=== PATIENT | male | born 1990 | race American Indian/Alaskan Native ===

== ENCOUNTER 2022-06-14 16:13 | Inpatient (IN) | payer SELFPAY ==
[2022-06-14] MEDS ORDERED: NALOXONE 2 MG/2 ML INJ IV ONE (17:52)
--- NOTE | 2022-06-14 18:31 | Emergency Department Report ---
ED General Adult HPI - General Chief complaint: Overdose Stated complaint: OD Time Seen by Provider: 06/14/22 16:29 Source: patient, EMS Mode of arrival: Stretcher Limitations: No Limitations - History of Present Illness Severity scale (0 -10): 0 - Related Data Allergies Allergy/AdvReac Type Severity Reaction Status Date / Time No Known Allergies Allergy Unverified 06/14/22 16:23 ED Review of Systems ROS: Stated complaint: OD Other details as noted in HPI Comment: All other systems reviewed and negative Constitutional: denies: chills, fever Eyes: denies: eye pain, eye discharge, vision change ENT: denies: ear pain, throat pain Respiratory: denies: cough, shortness of breath, wheezing Cardiovascular: denies: chest pain, palpitations Endocrine: no symptoms reported Gastrointestinal: denies: abdominal pain, nausea, diarrhea Genitourinary: denies: urgency, dysuria Musculoskeletal: denies: back pain, joint swelling, arthralgia Skin: denies: rash, lesions Neurological: denies: headache, weakness, paresthesias Psychiatric: denies: anxiety, depression Hematological/Lymphatic: denies: easy bleeding, easy bruising ED Physical Exam - General Limitations: No Limitations ED Course Vital Signs 06/14/22 16:13 Temperature 98.2 F Pulse Rate 95 H Respiratory 14 Rate Blood Pressure 116/79 [Left] O2 Sat by Pulse 98 Oximetry Critical care attestation.: If time is entered above; I have spent that time in minutes in the direct care of this critically ill patient, excluding procedure time. ED Disposition Condition: Stable
--- NOTE | 2022-06-14 18:33 | Emergency Department Report ---
ED General Adult HPI - General Chief complaint: Overdose Stated complaint: OD Time Seen by Provider: 06/14/22 16:29 Source: patient, EMS Mode of arrival: Stretcher Limitations: No Limitations - History of Present Illness Initial comments: Patient presents emergency department via EMS for unresponsiveness. The patient was found unresponsive by bystanders. EMS gave the patient 0.4 mg of Narcan and the patient was arousable. Patient states that he believes his cocaine was mixed with something. -: unknown Severity scale (0 -10): 0 Consistency: now resolved Improves with: none Worsens with: none Associated Symptoms: denies other symptoms Treatments Prior to Arrival: none - Related Data Allergies Allergy/AdvReac Type Severity Reaction Status Date / Time No Known Allergies Allergy Unverified 06/14/22 16:23 ED Review of Systems ROS: Stated complaint: OD Other details as noted in HPI Constitutional: denies: chills, fever Eyes: denies: eye pain, eye discharge, vision change ENT: denies: ear pain, throat pain Respiratory: denies: cough, shortness of breath, wheezing Cardiovascular: denies: chest pain, palpitations Endocrine: no symptoms reported Gastrointestinal: denies: abdominal pain, nausea, diarrhea Genitourinary: denies: urgency, dysuria Musculoskeletal: denies: back pain, joint swelling, arthralgia Skin: denies: rash, lesions Neurological: denies: headache, weakness, paresthesias Psychiatric: denies: anxiety, depression Hematological/Lymphatic: denies: easy bleeding, easy bruising ED Physical Exam - General Limitations: No Limitations General appearance: in no apparent distress, other (Somnolent but easily arousable) - Head Head exam: Present: atraumatic, normocephalic - Eye Eye exam: Present: normal appearance - ENT ENT exam: Present: mucous membranes moist - Neck Neck exam: Present: normal inspection - Respiratory Respiratory exam: Present: normal lung sounds bilaterally. Absent: respiratory distress - Cardiovascular Cardiovascular Exam: Present: regular rate, normal rhythm. Absent: systolic murmur, diastolic murmur, rubs, gallop - GI/Abdominal GI/Abdominal exam: Present: soft, normal bowel sounds. Absent: distended, tenderness - Rectal Rectal exam: Present: deferred - Extremities Exam Extremities exam: Present: normal inspection - Back Exam Back exam: Present: normal inspection - Neurological Exam Neurological exam: Present: alert, oriented X3, CN II-XII intact, other (). Absent: motor sensory deficit - Psychiatric Psychiatric exam: Present: normal affect, normal mood - Skin Skin exam: Present: warm, dry, intact, normal color. Absent: rash ED Course Vital Signs 06/14/22 06/14/22 06/14/22 16:13 16:41 16:45 Temperature 98.2 F Pulse Rate 95 H 84 Respiratory 14 11 L Rate Blood Pressure Blood Pressure 116/79 [Left] O2 Sat by Pulse 98 96 95 Oximetry 06/14/22 06/14/22 06/14/22 17:01 17:15 17:31 Temperature Pulse Rate 88 84 86 Respiratory 15 8 L 9 L Rate Blood Pressure 98/58 98/58 Blood Pressure [Left] O2 Sat by Pulse 95 96 96 Oximetry 06/14/22 06/14/22 06/14/22 17:45 18:01 18:15 Temperature Pulse Rate 85 86 91 H Respiratory 12 10 L 12 Rate Blood Pressure 103/61 103/61 104/63 Blood Pressure [Left] O2 Sat by Pulse 96 95 98 Oximetry 06/14/22 06/14/22 06/14/22 18:31 18:45 19:00 Temperature Pulse Rate 81 84 85 Respiratory 14 13 14 Rate Blood Pressure 104/63 106/70 104/63 Blood Pressure [Left] O2 Sat by Pulse 100 97 99 Oximetry 06/14/22 06/14/22 06/14/22 19:15 19:31 19:45 Temperature Pulse Rate 82 82 82 Respiratory 11 L 12 11 L Rate Blood Pressure 101/63 101/63 110/63 Blood Pressure [Left] O2 Sat by Pulse 96 95 95 Oximetry 06/14/22 06/14/22 20:01 20:15 Temperature Pulse Rate 82 79 Respiratory 18 11 L Rate Blood Pressure 110/63 Blood Pressure [Left] O2 Sat by Pulse 97 95 Oximetry ED Medical Decision Making - Lab Data Result diagrams: 06/14/22 19:56 06/14/22 19:56 Lab Results 06/14/22 06/14/22 Range/Units 19:56 19:56 WBC 18.5 H (4.5-11.0) K/mm3 RBC 4.47 (3.65-5.03) M/mm3 Hgb 13.8 (11.8-15.2) gm/dl Hct 40.6 (35.5-45.6) % MCV 91 (84-94) fl MCH 31 (28-32) pg MCHC 34 (32-34) % RDW 12.4 L (13.2-15.2) % Plt Count 138 L (140-440) K/mm3 Lymph % (Auto) 4.9 L (13.4-35.0) % Knox % (Auto) 7.2 (0.0-7.3) % Eos % (Auto) 0.0 (0.0-4.3) % Baso % (Auto) 0.3 (0.0-1.8) % Lymph # (Auto) 0.9 L (1.2-5.4) K/mm3 Knox # (Auto) 1.3 H (0.0-0.8) K/mm3 Eos # (Auto) 0.0 (0.0-0.4) K/mm3 Baso # (Auto) 0.0 (0.0-0.1) K/mm3 Seg Neutrophils % 87.6 H (40.0-70.0) % Seg Neutrophils # 16.2 H (1.8-7.7) K/mm3 Sodium 138 (137-145) mmol/L Potassium 4.6 (3.6-5.0) mmol/L Chloride 102.9 (98-107) mmol/L Carbon Dioxide 23 (22-30) mmol/L Anion Gap 17 mmol/L BUN 18 (9-20) mg/dL Creatinine 1.4 H (0.8-1.3) mg/dL Estimated GFR > 60 ml/min BUN/Creatinine Ratio 13 % Glucose 108 H (75-100) mg/dL Calcium 8.4 (8.4-10.2) mg/dL Total Bilirubin 1.10 (0.1-1.2) mg/dL AST 219 H (5-40) units/L ALT 113 H (7-56) units/L Alkaline Phosphatase 71 (35-129) units/L Total Protein 5.3 L (6.3-8.2) g/dL Albumin 3.5 L (3.9-5) g/dL Albumin/Globulin Ratio 1.9 % - Radiology Data Radiology results: report reviewed - Medical Decision Making Spoke to the neuro fuel dock attendant at [place], Dr. Waite, and the patient CT was discussed in detail So that is less likely that the patient has an anoxic injury due to his stability to correspond upon awakening Discussed doing a infectious work-up and to admit the patient to our facility for MRI with and without contrast The above-mentioned neurochecks was felt the patient did not need to be acutely transferred out to their facility Spoke to Dr. Real but the patient and the plan of care Patient will be admitted to the hospitalist with MRI planned for the morning Patient will also get lumbar puncture via IR in the a.m. Reevaluation of the patient at 10:05 PM he is alert oriented x3 with a GCS of 14/15 Critical care attestation.: If time is entered above; I have spent that time in minutes in the direct care of this critically ill patient, excluding procedure time. ED Disposition Clinical Impression: AMS (altered mental status) Disposition: ADMITTED INPATIENT Is pt being admited?: Yes Does the pt Need Aspirin: No Condition: Fair
--- NOTE | 2022-06-14 19:42 | Cat Scan Report ---
CT head/brain wo con INDICATION / CLINICAL INFORMATION: 31 years Male; unresponsive. TECHNIQUE: Routine CT head without contrast. All CT scans at this location are performed using CT dos e reduction for ALARA by means of automated exposure control. COMPARISON: None. FINDINGS: BRAIN / INTRACRANIAL CONTENTS: Decreased attenuation seen in the globus pallidus regions bilaterally. Findings are suggestive of anoxic episode. Please clinically correlate. Otherwise, no acute hemorrhage, mass effect, midline shift, hydrocephalus, or acute, large territori al infarct. No signs of significant atrophy or chronic infarct. No significant white matter abnormali ty seen. CRANIOCERVICAL JUNCTION: No significant abnormality. ORBITS: No significant abnormality of visualized orbits. SINUSES / MASTOIDS: Small air-fluid levels seen in both maxillary antra. Mild to moderate mucosal thi ckening seen in the ethmoids. ADDITIONAL FINDINGS: None. IMPRESSION: 1. Findings worrisome for anoxic episode, as described above. 2. Otherwise, no focal mass, hemorrhage, hydrocephalus, or acute, large infarct seen. 3. Sinus disease noted. Signer Name: Vinnie Sanchez MD, III Signed: 06/14/2022 7:38 PM Workstation Name: [id number]
[2022-06-14 20:41] LABS: Basophils % (Auto) 0.3 % (0.0-1.8); Hematocrit 40.6 % (35.5-45.6); Hemoglobin 13.8 gm/dl (11.8-15.2); Lymphocytes # (Auto) 0.9 K/mm3 (1.2-5.4); Lymphocytes % (Auto) 4.9 % (13.4-35.0); Mean Corpuscular HGB Conc 34 % (32-34); Mean Corpuscular Volume 91 fl (84-94); Monocytes # (Auto) 1.3 K/mm3 (0.0-0.8); Monocytes % (Auto) 7.2 % (0.0-7.3); Platelet Count 138 K/mm3 (140-440); Red Blood Count 4.47 M/mm3 (3.65-5.03); Red Cell Distribution Width 12.4 % (13.2-15.2)
[2022-06-14 20:57] LABS: Alanine Aminotransferase 113 units/L (7-56); Albumin 3.5 g/dL (3.9-5); BUN/Creatinine Ratio 13; Blood Urea Nitrogen 18 mg/dL (9-20); Calcium 8.4 mg/dL (8.4-10.2); Hemolysis Index 29
[2022-06-14] MEDS ORDERED: LIDOCAINE 2%/EPINEPHRINE 1:100,000 VIAL (20 ML) INFILTRATI ONE (21:47)
[2022-06-14] MEDS ORDERED: ONDANSETRON 4 MG/2 ML INJ IV PRN ×2 (22:18→22:47)
[2022-06-14] MEDS ORDERED: ACETAMINOPHEN 325 MG TAB PO PRN ×2 (22:18→22:47)
[2022-06-14] MEDS ORDERED: MORPHINE 2 MG/1 ML INJ IV PRN ×2 (22:18→22:47)
[2022-06-14] MEDS ORDERED: IBUPROFEN 600 MG TAB PO PRN (22:18)
[2022-06-14] MEDS ORDERED: MORPHINE 4 MG/1 ML INJ IV PRN (22:47)
[2022-06-14] MEDS ORDERED: ALBUTEROL 2.5 MG/3 ML NEBU IH PRN (22:47)
--- NOTE | 2022-06-14 22:55 | History and Physical Report ---
History of Present Illness Date of examination: 06/14/22 Date of admission: 06/14/22 Chief complaint: Altered mental status Drug overdose History of present illness: 31 years old male with history of cocaine abuse was brought to the emergency department via EMS for unresponsiveness. The patient was found unresponsive by bystanders. EMS gave the patient 0.4 mg of Narcan and the patient was arousable. Patient states that he believes his cocaine was mixed with so mething. In the emergency room initial CT scan of the head shows decreased attenuation seen in the right globus pallidus regions bilaterally. Findings are suggestive of an anoxic episode. Subsequently ER physician Spoke to the neuro shredded filler cigar maker machine at [place], Dr. Waite, and the patient CT was discussed in detail So that is less likely that the patient has an anoxic injury due to his stability to correspond upon awakening Discussed doing a infectious work-up and to admit the patient to our facility for MRI with and without contrast The above-mentioned neurochecks was felt the patient did not need to be acutely transferred out to their facility Spoke to Dr. Rela but the patient and the plan of care Patient will be admitted to the hospitalist with MRI planned for the morning Patient will also get lumbar puncture via IR in the a.m. Reevaluation of the patient at 10:05 PM he is alert oriented x3 with a GCS of 14/15 Past History Past Medical History: other Past Surgical History: No surgical history (Cocaine abuse) Social history: other (Cocaine abuse) Family history: no significant family history Medications and Allergies Allergies Allergy/AdvReac Type Severity Reaction Status Date / Time No Known Allergies Allergy Verified 06/14/22 22:24 Active Meds: Active Medications Acetaminophen (Acetaminophen 325 Mg Tab) 650 mg PO Q4H PRN PRN Reason: Pain MILD(1-3)/Fever >100.5/MANN Ibuprofen (Ibuprofen 600 Mg Tab) 600 mg PO Q6H PRN PRN Reason: Pain, Mild (1-3) Morphine Sulfate (Morphine 2 Mg/1 Ml Inj) 2 mg IV Q4H PRN PRN Reason: Pain, Moderate (4-6) Ondansetron HCl (Ondansetron 4 Mg/2 Ml Inj) 4 mg IV Q8H PRN PRN Reason: Nausea And Vomiting Sodium Chloride (Sodium Chloride 0.9% 10 Ml Flush Syringe) 10 ml IV BID NEGRITA Sodium Chloride (Sodium Chloride 0.9% 10 Ml Flush Syringe) 10 ml IV PRN PRN PRN Reason: LINE FLUSH Review of Systems All systems: negative Constitutional: fatigue, malaise, lethargy Exam - Constitutional Vitals: Temp Pulse Resp BP Pulse Ox 98.2 F 79 11 L 110/63 95 06/14/22 16:13 06/14/22 20:15 06/14/22 20:15 06/14/22 20:01 06/14/22 20:15 General appearance: Present: no acute distress, well-nourished - EENT Eyes: Present: PERRL ENT: hearing intact, clear oral mucosa - Neck Neck: Present: supple, normal ROM - Respiratory Respiratory effort: normal Respiratory: bilateral: CTA - Cardiovascular Heart Sounds: Present: S1 & S2. Absent: rub, click - Extremities Extremities: pulses symmetrical, No edema Peripheral Pulses: within normal limits - Abdominal General gastrointestinal: Present: soft, non-tender, non-distended, normal bowel sounds Male genitourinary: Present: normal - Integumentary Integumentary: Present: clear, warm, dry - Musculoskeletal Musculoskeletal: gait normal, strength equal bilaterally - Psychiatric Psychiatric: appropriate mood/affect, intact judgment & insight - Neurologic Neurologic: CNII-XII intact, moves all extremities Results - Labs CBC & Chem 7: 06/14/22 19:56 06/14/22 19:56 Labs: Laboratory Last Values WBC 18.5 K/mm3 (4.5-11.0) H 06/14/22 19:56 RBC 4.47 M/mm3 (3.65-5.03) 06/14/22 19:56 Hgb 13.8 gm/dl (11.8-15.2) 06/14/22 19:56 Hct 40.6 % (35.5-45.6) 06/14/22 19:56 MCV 91 fl (84-94) 06/14/22 19:56 MCH 31 pg (28-32) 06/14/22 19:56 MCHC 34 % (32-34) 06/14/22 19:56 RDW 12.4 % (13.2-15.2) L 06/14/22 19:56 Plt Count 138 K/mm3 (140-440) L 06/14/22 19:56 Lymph % (Auto) 4.9 % (13.4-35.0) L 06/14/22 19:56 Perry % (Auto) 7.2 % (0.0-7.3) 06/14/22 19:56 Eos % (Auto) 0.0 % (0.0-4.3) 06/14/22 19:56 Baso % (Auto) 0.3 % (0.0-1.8) 06/14/22 19:56 Lymph # (Auto) 0.9 K/mm3 (1.2-5.4) L 06/14/22 19:56 Perry # (Auto) 1.3 K/mm3 (0.0-0.8) H 06/14/22 19:56 Eos # (Auto) 0.0 K/mm3 (0.0-0.4) 06/14/22 19:56 Baso # (Auto) 0.0 K/mm3 (0.0-0.1) 06/14/22 19:56 Seg Neutrophils % 87.6 % (40.0-70.0) H 06/14/22 19:56 Seg Neutrophils # 16.2 K/mm3 (1.8-7.7) H 06/14/22 19:56 Sodium 138 mmol/L (137-145) 06/14/22 19:56 Potassium 4.6 mmol/L (3.6-5.0) 06/14/22 19:56 Chloride 102.9 mmol/L (98-107) 06/14/22 19:56 Carbon Dioxide 23 mmol/L (22-30) 06/14/22 19:56 Anion Gap 17 mmol/L 06/14/22 19:56 BUN 18 mg/dL (9-20) 06/14/22 19:56 Creatinine 1.4 mg/dL (0.8-1.3) H 06/14/22 19:56 Estimated GFR > 60 ml/min 06/14/22 19:56 BUN/Creatinine Ratio 13 % 06/14/22 19:56 Glucose 108 mg/dL (75-100) H 06/14/22 19:56 Lactic Acid 1.40 mmol/L (0.7-2.0) 06/14/22 21:33 Calcium 8.4 mg/dL (8.4-10.2) 06/14/22 19:56 Total Bilirubin 1.10 mg/dL (0.1-1.2) 06/14/22 19:56 AST 219 units/L (5-40) H 06/14/22 19:56 ALT 113 units/L (7-56) H 06/14/22 19:56 Alkaline Phosphatase 71 units/L (35-129) 06/14/22 19:56 Total Protein 5.3 g/dL (6.3-8.2) L 06/14/22 19:56 Albumin 3.5 g/dL (3.9-5) L 06/14/22 19:56 Albumin/Globulin Ratio 1.9 % 06/14/22 19:56 - Imaging and Cardiology CT Scan - head: report reviewed Assessment and Plan VTE prophylaxis?: Mechanical Plan of care discussed with patient/family: Yes - Patient Problems (1) Acute metabolic encephalopathy Status: Acute Plan to address problem: Admit the patient to the medical telemetry. NPO. D5 half-normal saline at the rate of 100 cc/h. Oxygen via nasal penetrator per minute. We will do MRI of the brain and MRA of the brain and neck with and without contrast. Neurology and critical care evaluation. We also do LP in the morning as per ER physician. (2) Anoxic brain injury Status: Acute Plan to address problem: Oxygen via nasal penetrator per minute. We will do MRI of the brain and MRA of the brain and neck with and without contrast. Neurology and critical care evaluation. We also do LP in the morning as per ER physician. (3) Cocaine abuse Status: Acute Plan to address problem: Patient counseled regarding quit taking drugs and cocaine. (4) DVT prophylaxis Status: Acute Plan to address problem: SCD for DVT prophylaxis. Pepcid 20 mg IV twice a day for GI prophylaxis. Patient is a full code
[2022-06-14] MEDS ORDERED: D5W/0.45% NACL 1,000 ML IV SCH (23:00)
[2022-06-15] MEDS ORDERED: IPRATROPIUM/ALBUTEROL SULFATE 3 ML AMPUL.NEB IH SCH (02:00)
[2022-06-15] MEDS: FAMOTIDINE 20 MG/2 ML INJ IV SCH ×2 (12:50→22:53)
[2022-06-15] MEDS: ASPIRIN 325 MG TAB PO SCH (12:51)
--- NOTE | 2022-06-15 13:14 | Procedure Note ---
Date of procedure: 06/15/22 Pre-op diagnosis: altered mental status Post-op diagnosis: same Procedure: flouro guided lumbar puncture Findings: elevated CSF pressure 20 cm H20 Anesthesia: local Surgeon: RO HILL Estimated blood loss: none Pathology: list (4 csf tubes) Specimen disposition: to lab Condition: stable Disposition: floor
--- NOTE | 2022-06-15 13:19 | Fluoroscopy Report ---
LUMBAR PUNCTURE INDICATION : Altered mental status PROCEDURE: The risks (including but not limited to bleeding, infection, and spinal headache) and juliann efits were explained to the patient and informed consent was obtained. A time out procedure was perf ormed. The procedure site was prepped and draped in the usual sterile fashion and lidocaine was used for local anesthesia. Under fluoroscopic guidance, a 22-gauge spinal needle was advanced into the L3-4 interlaminar space. The opening pressure was 200 mm H2O which was calculated by adding the length of the needle (9 cm) to the height of the CSF column. 4 separate collection tubes were used to obtain 2 mL's of CSF each Jerome ples were sent to the lab per the ordering physician specifications for further evaluation. The patient tolerated the procedure well with no complications. IMPRESSION: Successful lumbar puncture as outlined above. Opening pressure was 200 mm H20. Fluoroscopic time: 0.8 Number of fluoroscopic images: 1 Signer Name: Toni Kwon Jr, MD Signed: 06/15/2022 1:15 PM Workstation Name: [id number]
--- NOTE | 2022-06-15 13:32 | Magnetic Resonance Report ---
MRI BRAIN WITHOUT CONTRAST INDICATION / CLINICAL INFORMATION: stroke. TECHNIQUE: Multisequence, multiplanar images were obtained. COMPARISON: None available. FINDINGS: CEREBRAL and CEREBELLAR HEMISPHERES: Symmetric diffusion restriction is identified in both basal gang juliet involving the globus pallidi bilaterally. No other areas of diffusion restriction are identified. There are punctate areas of petechial hemorrhage suggested on the gradient T2 images in both globus pallidi. No uncontained hemorrhage. There are scattered areas of T2 signal abnormalities in the periv entricular and subcortical white matter bilaterally consistent with chronic microangiopathy. The chemo ruben of the brain parenchyma demonstrates normal signal. No midline shift. No acute hemorrhage. No extra-axial fluid collection. VENTRICLES: Normal in size and configuration for age. VISUALIZED ORBITS: No significant abnormality. VISUALIZED PARANASAL SINUSES: Mild to moderate mucosal thickening is present throughout all paranasal sinuses. The mastoid air cells are clear. ADDITIONAL FINDINGS: None. IMPRESSION: Diffusion restriction is identified in the globus pallidi bilaterally. This could be secondary to hyp oxic-ischemic encephalopathy, toxic encephalopathy or metabolic encephalopathy. Cocaine encephalopath y could be considered. MRA HEAD INDICATION / CLINICAL INFORMATION: 31 years Male; stroke. TECHNIQUE: 3-D time of flight. NASCET type criteria used to evaluate stenoses. COMPARISON: None available. FINDINGS: INTERNAL CAROTID ARTERIES: No significant narrowing appreciated. VERTEBROBASILAR SYSTEM: No significant narrowing appreciated. The left vertebral artery is dominant. DISTAL BRANCHES: Distal branches of the anterior, middle, and posterior cerebral arteries are fairly symmetric in appearance and number. ANEURYSM: None identified. IMPRESSION: No significant abnormality on this MRA of the brain. Signer Name: Toni Kwon Jr, MD Signed: 06/15/2022 1:28 PM Workstation Name: [id number]
--- NOTE | 2022-06-15 13:50 | Progress Note ---
Assessment and Plan Assessment and plan: #Acute metabolic encephalopathyresolved #Mild anoxic brain injury CT head noncontrast (06/14/2022) revealing "findings worrisome for anoxic episode; decreased attenuation seen in the globus pallidus regions bilaterally. Findings are suggestive of an anoxic episode. Please clinically correlate. Otherwise, no focal mass, hemorrhage, hydrocephalus, or acute large infarct seen." MRI brain without contrast (06/15/2022) revealing "diffusion restriction is identified in the globus palate bilaterally; this could be secondary to hypoxic ischemic encephalopathy, toxic encephalopathy, or metabolic encephalopathy. Cocaine encephalopathy could be considered. Lumbar puncture performed (06/15/2022): Glucose, total protein, cell count differential Ordering PT/OT to evaluate patient status post anoxic brain injury Pending UDS #Mild protein caloric malnutrition Albumin 3.5 Starting dietary supplementation #Tobacco dependence #Tobacco/Smoking cessation counseling - Counseled patient about the importance of smoking cessation and the possible sequelae as a result of continued tobacco consumption. The patient expresses understanding. -Time: +15 mins #Advanced care planning -Disease education conducted, care plan discussed, diagnoses discussed, prognosis discussed, and patient acknowledges understanding with care plan -Time: +30 min Disposition Plan: Continue medical management Total Time Spent with Patient (Minutes): 45 minutes History Interval history: No acute events overnight. Hospitalist Physical - Constitutional Vitals: Temp Pulse Resp BP Pulse Ox 98.3 F 66 20 110/57 95 06/15/22 05:21 06/15/22 05:21 06/15/22 05:21 06/15/22 05:21 06/15/22 05:21 General appearance: Present: no acute distress, well-nourished - EENT Eyes: Present: PERRL, EOM intact ENT: hearing intact, clear oral mucosa, dentition normal - Neck Neck: Present: supple, normal ROM - Respiratory Respiratory effort: normal Respiratory: bilateral: CTA - Cardiovascular Rhythm: regular Heart Sounds: Present: S1 & S2 - Extremities Extremities: no ischemia, pulses intact, pulses symmetrical, No edema, normal temperature, normal color Peripheral Pulses: within normal limits - Abdominal General gastrointestinal: soft, non-tender, non-distended, normal bowel sounds - Integumentary Integumentary: Present: clear, warm, dry - Psychiatric Psychiatric: appropriate mood/affect, cooperative - Neurologic Neurologic: CNII-XII intact, moves all extremities - Allied Health Allied health notes reviewed: nursing Results - Labs CBC & Chem 7: 06/14/22 19:56 06/14/22 19:56 Labs: Laboratory Last Values WBC 18.5 K/mm3 (4.5-11.0) H 06/14/22 19:56 RBC 4.47 M/mm3 (3.65-5.03) 06/14/22 19:56 Hgb 13.8 gm/dl (11.8-15.2) 06/14/22 19:56 Hct 40.6 % (35.5-45.6) 06/14/22 19:56 MCV 91 fl (84-94) 06/14/22 19:56 MCH 31 pg (28-32) 06/14/22 19:56 MCHC 34 % (32-34) 06/14/22 19:56 RDW 12.4 % (13.2-15.2) L 06/14/22 19:56 Plt Count 138 K/mm3 (140-440) L 06/14/22 19:56 Lymph % (Auto) 4.9 % (13.4-35.0) L 06/14/22 19:56 [place] % (Auto) 7.2 % (0.0-7.3) 06/14/22 19:56 Eos % (Auto) 0.0 % (0.0-4.3) 06/14/22 19:56 Baso % (Auto) 0.3 % (0.0-1.8) 06/14/22 19:56 Lymph # (Auto) 0.9 K/mm3 (1.2-5.4) L 06/14/22 19:56 [place] # (Auto) 1.3 K/mm3 (0.0-0.8) H 06/14/22 19:56 Eos # (Auto) 0.0 K/mm3 (0.0-0.4) 06/14/22 19:56 Baso # (Auto) 0.0 K/mm3 (0.0-0.1) 06/14/22 19:56 Seg Neutrophils % 87.6 % (40.0-70.0) H 06/14/22 19:56 Seg Neutrophils # 16.2 K/mm3 (1.8-7.7) H 06/14/22 19:56 Sodium 138 mmol/L (137-145) 06/14/22 19:56 Potassium 4.6 mmol/L (3.6-5.0) 06/14/22 19:56 Chloride 102.9 mmol/L (98-107) 06/14/22 19:56 Carbon Dioxide 23 mmol/L (22-30) 06/14/22 19:56 Anion Gap 17 mmol/L 06/14/22 19:56 BUN 18 mg/dL (9-20) 06/14/22 19:56 Creatinine 1.4 mg/dL (0.8-1.3) H 06/14/22 19:56 Estimated GFR > 60 ml/min 06/14/22 19:56 BUN/Creatinine Ratio 13 % 06/14/22 19:56 Glucose 108 mg/dL (75-100) H 06/14/22 19:56 Lactic Acid 1.40 mmol/L (0.7-2.0) 06/14/22 21:33 Calcium 8.4 mg/dL (8.4-10.2) 06/14/22 19:56 Total Bilirubin 1.10 mg/dL (0.1-1.2) 06/14/22 19:56 AST 219 units/L (5-40) H 06/14/22 19:56 ALT 113 units/L (7-56) H 06/14/22 19:56 Alkaline Phosphatase 71 units/L (35-129) 06/14/22 19:56 Total Protein 5.3 g/dL (6.3-8.2) L 06/14/22 19:56 Albumin 3.5 g/dL (3.9-5) L 06/14/22 19:56 Albumin/Globulin Ratio 1.9 % 06/14/22 19:56 Microbiology: Microbiology 06/14/22 21:33 Peripheral/Venous Blood Culture - Preliminary Culture in Progress 06/14/22 21:33 Peripheral/Venous Blood Culture - Preliminary Culture in Progress Active Medications - Current Medications Current Medications: Generic Name Dose Route Start Last Admin Trade Name Freq PRN Reason Stop Dose Admin Acetaminophen 650 mg 06/14/22 22:47 Acetaminophen 325 Mg Tab PO Q4H PRN Pain MILD(1-3)/Fever >100.5/MANN Albuterol 2.5 mg 09/08/22 22:47 Albuterol 2.5 Mg/3 Ml Nebu IH Q3HRT PRN Shortness Of Breath Aspirin 325 mg 06/15/22 10:00 06/15/22 12:51 Aspirin 325 Mg Tab PO 325 mg QDAY NEGRITA Administration Famotidine 20 mg 06/15/22 10:00 06/15/22 12:50 Famotidine 20 Mg/2 Ml Inj IV 20 mg BID NEGRITA Administration Ibuprofen 600 mg 06/14/22 22:18 Ibuprofen 600 Mg Tab PO Q6H PRN Pain, Mild (1-3) Morphine Sulfate 2 mg 06/14/22 22:47 Morphine 2 Mg/1 Ml Inj IV Q4H PRN Pain, Moderate (4-6) Morphine Sulfate 4 mg 06/14/22 22:47 Morphine 4 Mg/1 Ml Inj IV Q4H PRN Pain , Severe (7-10) Ondansetron HCl 4 mg 06/14/22 22:47 Ondansetron 4 Mg/2 Ml Inj IV Q8H PRN Nausea And Vomiting Sodium Chloride 10 ml 06/15/22 10:00 06/15/22 12:51 Sodium Chloride 0.9% 10 Ml Flush Syringe IV 10 ml BID NEGRITA Administration Sodium Chloride 10 ml 06/14/22 22:47 Sodium Chloride 0.9% 10 Ml Flush Syringe IV PRN PRN LINE FLUSH
[2022-06-15 16:19] LABS: Basophils % (Auto) 0.1 % (0.0-1.8); Eosinophils % (Auto) 0.1 % (0.0-4.3); Hematocrit 37.8 % (35.5-45.6); Hemoglobin 12.9 gm/dl (11.8-15.2); Lymphocytes # (Auto) 0.8 K/mm3 (1.2-5.4); Lymphocytes % (Auto) 7.3 % (13.4-35.0); Mean Corpuscular HGB Conc 34 % (32-34); Mean Corpuscular Volume 92 fl (84-94); Monocytes # (Auto) 0.8 K/mm3 (0.0-0.8); Monocytes % (Auto) 7.6 % (0.0-7.3); Platelet Count 131 K/mm3 (140-440); Red Blood Count 4.12 M/mm3 (3.65-5.03); Red Cell Distribution Width 12.4 % (13.2-15.2)
[2022-06-15 16:27] LABS: INR 0.95 (0.87-1.13)
[2022-06-15 16:33] LABS: Glucose,CSF 69 mg/dL
[2022-06-15 16:44] LABS: BUN/Creatinine Ratio 13; Blood Urea Nitrogen 14 mg/dL (9-20); Calcium 8.2 mg/dL (8.4-10.2); Chol/HDL Ratio 2.81 %; HDL Cholesterol 43 mg/dL (40-59); Hemolysis Index 10; LDL Cholesterol,Direct 63 mg/dL (50-130)
[2022-06-15 16:46] LABS: Total Cells Counted 3 /mm3
[2022-06-15 16:47] LABS: Appearance,CSF Clear; Red Blood Cell,CSF 0 /mm3 (0-0); White Blood Cell,CSF 0 /mm3 (1-10)
--- NOTE | 2022-06-15 17:15 | Consultation ---
History of Present Illness Consult date: 06/15/22 Reason for Consult: AMS Chief complaint: AMS History of present illness: 31 yo male with substance abuse, noted with acute encephalopathy / unresponsive and found by bystanders. He was given narcan and noted to be arousable. He thinks the cocaine was laced. Noted on admission nchct with bilateral globus pallidus hypodensities, which does not match his exam. Patient is not in the room during rounds but is at MRI. Past History Past Medical History: other (substance abuse) Past Surgical History: No surgical history (Cocaine abuse) Social history: other (Cocaine abuse) Family history: no significant family history Medications and Allergies Allergies Allergy/AdvReac Type Severity Reaction Status Date / Time No Known Allergies Allergy Verified 06/14/22 22:24 Home Medications Medication Instructions Recorded Confirmed Last Taken Type No Known Home Medications [No 06/15/22 06/15/22 Unknown History Reported Home Medications] Active Meds: Active Medications Acetaminophen (Acetaminophen 325 Mg Tab) 650 mg PO Q4H PRN PRN Reason: Pain MILD(1-3)/Fever >100.5/MANN Albuterol (Albuterol 2.5 Mg/3 Ml Nebu) 2.5 mg IH Q3HRT PRN PRN Reason: Shortness Of Breath Aspirin (Aspirin 325 Mg Tab) 325 mg PO QDAY [facility] Last Admin: 06/15/22 12:51 Dose: 325 mg Famotidine (Famotidine 20 Mg/2 Ml Inj) 20 mg IV BID [facility] Last Admin: 06/15/22 12:50 Dose: 20 mg Ibuprofen (Ibuprofen 600 Mg Tab) 600 mg PO Q6H PRN PRN Reason: Pain, Mild (1-3) Morphine Sulfate (Morphine 2 Mg/1 Ml Inj) 2 mg IV Q4H PRN PRN Reason: Pain, Moderate (4-6) Morphine Sulfate (Morphine 4 Mg/1 Ml Inj) 4 mg IV Q4H PRN PRN Reason: Pain , Severe (7-10) Ondansetron HCl (Ondansetron 4 Mg/2 Ml Inj) 4 mg IV Q8H PRN PRN Reason: Nausea And Vomiting Sodium Chloride (Sodium Chloride 0.9% 10 Ml Flush Syringe) 10 ml IV BID [facility] Last Admin: 06/15/22 12:51 Dose: 10 ml Sodium Chloride (Sodium Chloride 0.9% 10 Ml Flush Syringe) 10 ml IV PRN PRN PRN Reason: LINE FLUSH Physical Examination - Vital Signs Vital Signs: Vital Signs Temp Pulse Resp BP Pulse Ox 98.2 F 95 H 14 116/79 98 06/14/22 16:13 06/14/22 16:13 06/14/22 16:13 06/14/22 16:13 06/14/22 16:13 - Physical Exam Narrative exam: Patient is not in room during rounds but he is at MRI. Results - Laboratory Findings CBC and BMP: 06/15/22 15:54 06/15/22 15:54 Abnormal Lab Findings: Abnormal Labs 06/14/22 06/14/22 06/15/22 19:56 19:56 15:54 WBC 18.5 H RDW 12.4 L 12.4 L Plt Count 138 L 131 L Lymph % (Auto) 4.9 L 7.3 L [place] % (Auto) 7.6 H Lymph # (Auto) 0.9 L 0.8 L [place] # (Auto) 1.3 H Seg Neutrophils % 87.6 H 84.9 H Seg Neutrophils # 16.2 H 9.2 H Sodium Carbon Dioxide Creatinine 1.4 H Glucose 108 H Calcium AST 219 H ALT 113 H Total Protein 5.3 L Albumin 3.5 L 06/15/22 15:54 WBC RDW Plt Count Lymph % (Auto) [place] % (Auto) Lymph # (Auto) [place] # (Auto) Seg Neutrophils % Seg Neutrophils # Sodium 136 L Carbon Dioxide 31 H D Creatinine Glucose 131 H Calcium 8.2 L AST ALT Total Protein Albumin Assessment and Plan 31 yo male with substance abuse, noted with bilateral globus pallidus hypodensities. 1. Acute Toxic Encephalopathy - secondary to substance (cocaine+) abuse; bilateral globus pallidus hypodensities likely represent toxic/metabolic injury, seen sometimes in the setting of substance abuse. 2. Substance Abuse - outpatient detox/rehab program highly recommended; high risk of seizures / strokes / cardiac / metabolic / toxic events. Santo Bee MD Neurology
[2022-06-16 07:51] LABS: Basophils % (Auto) 0.2 % (0.0-1.8); Eosinophils % (Auto) 0.3 % (0.0-4.3); Hematocrit 38.2 % (35.5-45.6); Hemoglobin 12.5 gm/dl (11.8-15.2); Lymphocytes % (Auto) 11.7 % (13.4-35.0); Mean Corpuscular HGB Conc 33 % (32-34); Mean Corpuscular Volume 92 fl (84-94); Monocytes # (Auto) 0.9 K/mm3 (0.0-0.8); Monocytes % (Auto) 11.1 % (0.0-7.3); Platelet Count 162 K/mm3 (140-440); Red Blood Count 4.18 M/mm3 (3.65-5.03); Red Cell Distribution Width 12.4 % (13.2-15.2)
[2022-06-16 08:04] LABS: BUN/Creatinine Ratio 10; Blood Urea Nitrogen 10 mg/dL (9-20); Calcium 8.3 mg/dL (8.4-10.2); Hemolysis Index 5
--- NOTE | 2022-06-16 09:01 | Discharge Summary ---
Providers - Providers Date of Admission: 06/15/22 10:44 Date of discharge: 06/16/22 Attending physician: YEN MUNOZ MD 06/14/22 22:47 Consult to Physician [CONS] Routine Comment: Consulting Provider: EUGENE NOYOLA Physician Instructions: Reason For Exam: ams Occupational Therapy Evaluate and Treat [CONS] Routine Comment: Reason For Exam: Neuro deficits Physical Therapy Evaluation and Treat [CONS] Routine Comment: Reason For Exam: Neuro deficits Primary care physician: KAYLEIGH AKHTAR Hospitalization Reason for admission: Acute toxic metabolic encephalopathy, mild anoxic brain injury, MARLEEN Condition: Fair Pertinent studies: Reviewed. Procedures: Lumbar punctureunremarkable Hospital course: The patient is a 31-year-old male with past medical history of polysubstance dependence (cocaine) who presented to the ED via EMS after being found unresponsive by bystanders. In the scene, the patient was administered 0.4 mg of Narcan causing arousability. The patient stated that he was snorting cocaine that was possibly "mixed with something". In the ED, the patient was found to be hemodynamically stable. The patient's labs are remarkable for creatinine 1.4, WBC 18.5, platelets 138. Patient underwent CT head noncontrast (06/14/2022) revealing "findings worrisome for anoxic episode; decreased attenuation seen in the globus pallidus regions bilaterally. Findings are suggestive of an anoxic episode. Please clinically correlate. Otherwise, no focal mass, hemorrhage, hydrocephalus, or acute large infarct seen". He then underwent MRI brain without contrast (06/15/2022) revealing "diffusion restriction is identified in the globus palate bilaterally; this could be secondary to hypoxic ischemic encephalopathy, toxic encephalopathy, or metabolic encephalopathy. Cocaine encephalopathy could be considered". Patient underwent lumbar puncture that was found to be unremarkable. He was evaluated by physical therapy that deemed the patient safe to go home without any additional needs needed. Patient's acute type metabolic encephalopathy has since resolved. Patient was essentially diagnosed with mild anoxic brain injury without any obvious residual defects. Patient was counseled at length about the importance of cessation of illicit substances, the patient expresses understanding. Patient is medically clear for discharge. Disposition: 01 HOME / SELF CARE / HOMELESS Final Discharge Diagnosis (Prints w/discharge instructions): Acute toxic metabolic encephalopathy, mild anoxic brain injury, MARLEEN secondary to vasomotor, mild protein caloric malnutrition, tobacco dependence, polysubstance dependence. Time spent for discharge: 45 min Core Measure Documentation - Palliative Care Palliative Care/ Comfort Measures: Not Applicable - Core Measures Any of the following diagnoses?: none Exam - Constitutional Vitals: Temp Pulse Resp BP Pulse Ox 98.3 F 63 18 115/71 94 06/16/22 04:56 06/16/22 04:56 06/16/22 04:56 06/16/22 04:56 06/16/22 04:56 General appearance: Present: no acute distress, well-nourished - EENT Eyes: Present: PERRL, EOM intact ENT: hearing intact, clear oral mucosa, dentition normal - Neck Neck: Present: supple, normal ROM - Respiratory Respiratory effort: normal Respiratory: bilateral: CTA - Cardiovascular Rhythm: regular Heart Sounds: Present: S1 & S2 - Extremities Extremities: no ischemia, pulses intact, pulses symmetrical, No edema, normal temperature, normal color, Full ROM Peripheral Pulses: within normal limits - Abdominal General gastrointestinal: Present: soft, non-tender, non-distended, normal bowel sounds Male genitourinary: Present: deferred - Rectal Rectal Exam: deferred - Integumentary Integumentary: Present: clear, warm, dry - Musculoskeletal Musculoskeletal: strength equal bilaterally - Psychiatric Psychiatric: appropriate mood/affect, intact judgment & insight, memory intact, cooperative - Neurologic Neurologic: CNII-XII intact, moves all extremities - Allied Health Allied health notes reviewed: nursing Plan Activity: no restrictions Diet: regular Additional Instructions: The patient is a 31-year-old male with past medical history of polysubstance dependence (cocaine) who presented to the ED via EMS after being found unresponsive by bystanders. In the scene, the patient was administered 0.4 mg of Narcan causing arousability. The patient stated that he was snorting cocaine that was possibly "mixed with something". In the ED, the patient was found to be hemodynamically stable. The patient's labs are remarkable for creatinine 1.4, WBC 18.5, platelets 138. Patient underwent CT head noncontrast (06/14/2022) revealing "findings worrisome for anoxic episode; decreased attenuation seen in the globus pallidus regions bilaterally. Findings are suggestive of an anoxic episode. Please clinically correlate. Otherwise, no focal mass, hemorrhage, hydrocephalus, or acute large infarct seen". He then underwent MRI brain without contrast (06/15/2022) revealing "diffusion restriction is identified in the globus palate bilaterally; this could be secondary to hypoxic ischemic encephalopathy, toxic encephalopathy, or metabolic encephalopathy. Cocaine encephalopathy could be considered". Patient underwent lumbar puncture that was found to be unremarkable. He was evaluated by physical therapy that deemed the patient safe to go home without any additional needs needed. Patient's acute type metabolic encephalopathy has since resolved. Patient was essentially diagnosed with mild anoxic brain injury without any obvious residual defects. Patient was counseled at length about the importance of cessation of illicit substances, the patient expresses understanding. Patient is medically clear for discharge. Care Plan Goals: Patient is medically cleared for discharge. Assessment: The patient is a 31-year-old male with past medical history of polysubstance dependence (cocaine) who presented to the ED via EMS after being found unresponsive by bystanders. In the scene, the patient was administered 0.4 mg o f Narcan causing arousability. The patient stated that he was snorting cocaine that was possibly "mixed with something". In the ED, the patient was found to be hemodynamically stable. The patient's labs are remarkable for creatinine 1.4, WBC 18.5, platelets 138. Patient underwent CT head noncontrast (06/14/2022) revealing "findings worrisome for anoxic episode; decreased attenuation seen in the globus pallidus regions bilaterally. Findings are suggestive of an anoxic episode. Please clinically correlate. Otherwise, no focal mass, hemorrhage, hydrocephalus, or acute large infarct seen". He then underwent MRI brain without contrast (06/15/2022) revealing "diffusion restriction is identified in the globus palate bilaterally; this could be secondary to hypoxic ischemic encephalopathy, toxic encephalopathy, or metabolic encephalopathy. Cocaine encephalopathy could be considered". Patient underwent lumbar puncture that was found to be unremarkable. He was evaluated by physical therapy that deemed the patient safe to go home without any additional needs needed. Patient's acute type metabolic encephalopathy has since resolved. Patient was essentially diagnosed with mild anoxic brain injury without any obvious residual defects. Patient was counseled at length about the importance of cessation of illicit substances, the patient expresses understanding. Patient is medically clear for discharge. Follow up with: NI PHILLIPS MD [Staff Physician] - 14 Days
[2022-06-16] MEDS: ASPIRIN 325 MG TAB PO SCH (09:56)
[2022-06-16] MEDS: FAMOTIDINE 20 MG/2 ML INJ IV SCH (09:56)
[2022-06-16 12:26] VITALS: BP 109/69
== END 2022-06-16 14:36 | disposition home or self-care (01) | DRG 91 ==
LOC: ED 16:13 → 3A 22:18 → OBSVTOIN 06-15 10:44
PROVIDERS: ADMIT Hospitalist; ATTEND Student in an Organized Health Care Education/Training Program
PROC: 009U3ZX Drainage of Spinal Canal, Percutaneous Approach, Diagnostic (ICD-10-PCS; principal; 2022-06-15)
PROC: B01B1ZZ Fluoroscopy of Spinal Cord using Low Osmolar Contrast (ICD-10-PCS; 2022-06-15)
DX: G92.8 Other toxic encephalopathy (principal); N17.0 Acute kidney failure with tubular necrosis; E44.1 Mild protein-calorie malnutrition; F14.10 Cocaine abuse, uncomplicated; Z68.22 Body mass index [BMI] 22.0-22.9, adult
CPT/HCPCS: 36415; 62270; 62328; 70450; 70544; 70551; 80048; 80053; 80061; 82140; 82947; 82962; 84160; 85025; 85610; 87040; 87116; 89051; 96374; 99285; G0378; J3490; J7070; J2310